=== PATIENT | male | born 1985 | race American Indian/Alaskan Native ===

== ENCOUNTER 2018-10-17 19:49 | Emergency (ER) | payer OTHER ==
--- NOTE | 2018-10-17 20:44 | Emergency Department Report ---
Blank Doc - Documentation Documentation: This is a 32-year-old male that presents with back pain and testicular pain. This initial assessment/diagnostic orders/clinical plan/treatment(s) is/are subject to change based on patient's health status, clinical progression and re- assessment by fellow clinical providers in the ED. Further treatment and workup at subsequent clinical providers discretion. Patient/guardians urged not to elope from the ED as their condition may be serious if not clinically assessed and managed. Initial orders include: 1- Patient sent to [facility] for further evaluation and treatment 2- US doppler testicular. Called tech for a stat US. 3- UA
--- NOTE | 2018-10-17 21:40 | Ultrasound Report ---
PROCEDURE: US TESTICULAR DOPPLER COMP TECHNIQUE: Real-time allen-scale and color flow Doppler sonography in multiple planes of the scrotum, testicles, and epididymes was performed. Velocity spectral waveform analysis and color Doppler imagi ng of the arterial inflow and venous outflow of the testicles was performed with image documentation. HISTORY: testicular pain COMPARISONS: None . FINDINGS: RIGHT TESTICLE: Size: 2.8 x 1.9 x 3.9 cm . Appearance: Normal size and echotexture . Arterial blood flow: Normal spectral waveforms, flow velocities and color flow images.. Venous blood flow: Normal spectral waveforms and color flow images. Right epididymis: Normal size and echotexture . Hydrocele: None . LEFT TESTICLE Size: 3.4 x 2.1 x 3.3 cm . Appearance: Normal size and echotexture . Arterial blood flow: Normal spectral waveforms, flow velocities and color flow images.. Venous blood flow: Normal spectral waveforms and color flow images. Left epididymis: Normal size and echotexture . Hydrocele: None . IMPRESSION: Normal Examination . This document is electronically signed by Claudio Gilbert MD., October 17 2018 09:38:31 PM ET
[2018-10-17 22:16] LABS: Bacteria,Urine 1+ /HPF (Negative); Bilirubin,Urine NEG (Negative); Blood,Urine NEG (Negative); Color,Urine Colorless (Yellow); Protein,Urine <15 mg/dL mg/dL (Negative); RBC,Urine < 1.0 /HPF (0.0-6.0); Urobilinogen,Urine < 2.0 mg/dL (<2.0); WBC,Urine < 1.0 /HPF (0.0-6.0)
--- NOTE | 2018-10-17 23:02 | Emergency Department Report ---
ED Male HPI - General Chief complaint: Back Pain/Injury Stated complaint: TESTICULAR PAIN/BACK PAIN Time Seen by Provider: 10/17/18 20:42 Source: patient Mode of arrival: Ambulatory Limitations: No Limitations - History of Present Illness Initial comments: Patient 32-year-old -[place] male who presents with left testicular pain 3 days there is no dysuria no hematuria no discharge patient states is intermittent relationship for std there is no nausea vomiting no abdominal pain MD Complaint: testicle pain Onset/Timin -: week(s) Location: left testicle Radiation: none Severity: moderate Severity scale (0 -10): 5 Quality: aching Consistency: intermittent Improves with: none Worsens with: palpation, movement denies other symptoms - Related Data Sexually active: Yes Previous Rx's Medication Instructions Recorded Last Taken Type HYDROcodone/APAP 5-325 [[place] 1 each PO Q6HR PRN #20 tablet 12/21/15 Unknown Rx 5/325] Doxycycline [Vibramycin CAP] 100 mg PO Q12HR 10 Days #20 capsule 10/17/18 Unknown Rx traMADol [Ultram] 50 mg PO Q6HR PRN #12 tablet 10/17/18 Unknown Rx Allergies Allergy/AdvReac Type Severity Reaction Status Date / Time No Known Allergies Allergy Unverified 09/02/13 11:41 ED Review of Systems ROS: Stated complaint: TESTICULAR PAIN/BACK PAIN Other details as noted in HPI Constitutional: denies: chills, fever Eyes: denies: eye pain, eye discharge, vision change ENT: denies: ear pain, throat pain Respiratory: denies: cough, shortness of breath, wheezing Cardiovascular: denies: chest pain, palpitations Endocrine: no symptoms reported Gastrointestinal: denies: abdominal pain, nausea, diarrhea Genitourinary: testicular pain (left test pain ). denies: urgency, dysuria, frequency, hematuria, discharge, testicular mass Musculoskeletal: denies: back pain, joint swelling, arthralgia Skin: denies: rash, lesions Neurological: denies: headache, weakness, paresthesias Psychiatric: denies: anxiety, depression Hematological/Lymphatic: denies: easy bleeding, easy bruising ED Past Medical Hx - Past Medical History Previous Medical History?: Yes Hx Psychiatric Treatment: Yes (anxiety) Hx Asthma: Yes Additional medical history: Hyperthyroid - Surgical History Past Surgical History?: No - Social History Smoking Status: Current Every Day Smoker Substance Use Type: Marijuana - Medications Home Medications: Home Medications Medication Instructions Recorded Confirmed Last Taken Type HYDROcodone/APAP 5-325 [[place] 1 each PO Q6HR PRN #20 tablet 12/21/15 Unknown Rx 5/325] Doxycycline [Vibramycin CAP] 100 mg PO Q12HR 10 Days #20 capsule 10/17/18 Unknown Rx traMADol [Ultram] 50 mg PO Q6HR PRN #12 tablet 10/17/18 Unknown Rx ED Physical Exam - General Limitations: No Limitations General appearance: alert, in no apparent distress - Head Head exam: Present: atraumatic, normocephalic - Eye Eye exam: Present: normal appearance - ENT ENT exam: Present: mucous membranes moist - Neck Neck exam: Present: normal inspection - Respiratory Respiratory exam: Present: normal lung sounds bilaterally. Absent: respiratory distress - Cardiovascular Cardiovascular Exam: Present: regular rate, normal rhythm. Absent: systolic mu rmur, diastolic murmur, rubs, gallop - GI/Abdominal GI/Abdominal exam: Present: soft, normal bowel sounds. Absent: distended, tenderness, guarding, rebound, rigid, bruit, hernia - Rectal Rectal exam: Present: deferred - exam: Present: testicular tenderness (epididymal tenderness to palpation), circumcision. Absent: scrotal swelling - Extremities Exam Extremities exam: Present: normal inspection, full ROM, normal capillary refill - Back Exam Back exam: Present: normal inspection, full ROM. Absent: tenderness, CVA tenderness (R), CVA tenderness (L), muscle spasm, paraspinal tenderness, rash noted - Neurological Exam Neurological exam: Present: alert, oriented X3, CN II-XII intact, normal gait - Psychiatric Psychiatric exam: Present: normal affect, normal mood - Skin Skin exam: Present: warm, dry, intact, normal color. Absent: rash ED Course Vital Signs 10/17/18 20:42 Temperature 98.1 F Pulse Rate 62 Respiratory 20 Rate Blood Pressure 112/61 O2 Sat by Pulse 100 Oximetry ED Medical Decision Making - Lab Data Labs 10/17/18 21:54 Urine Color Colorless Urine Turbidity Clear Urine pH 6.0 Ur Specific [place] 1.002 L Urine Protein <15 mg/dl Urine Glucose (UA) Neg Urine Ketones Neg Urine Blood Neg Urine Nitrite Neg Urine Bilirubin Neg Urine Urobilinogen < 2.0 Ur Leukocyte Esterase Neg Urine WBC (Auto) < 1.0 Urine RBC (Auto) < 1.0 Urine Bacteria (Auto) 1+ - Radiology Data Radiology results: report reviewed, image reviewed Ultrasound Report Signed Patient: TANG MARTINEZ MR#: [id number] : 1985 Acct:[id number] Age/Sex: 32 / M ADM Date: 10/17/18 Loc: ED Attending Dr: Ordering Physician: GERARDO FRENCH NP Date of Service: 10/17/18 Procedure(s): US testicular doppler comp Accession Number(s): [id number] cc: GERARDO FRENCH NP PROCEDURE: US TESTICULAR DOPPLER COMP TECHNIQUE: Real-time allen-scale and color flow Doppler sonography in multiple planes of the scrotum, testicles, and epididymes was performed. Velocity spectral waveform analysis and color Doppler imaging of the arterial inflow and venous outflow of the testicles was performed with image documentation. HISTORY: testicular pain COMPARISONS: None . FINDINGS: RIGHT TESTICLE: Size: 2.8 x 1.9 x 3.9 cm . Appearance: Normal size and echotexture . Arterial blood flow: Normal spectral waveforms, flow velocities and color flow images.. Venous blood flow: Normal spectral waveforms and color flow images. Right epididymis: Normal size and echotexture . Hydrocele: None . LEFT TESTICLE Size: 3.4 x 2.1 x 3.3 cm . Appearance: Normal size and echotexture . Arterial blood flow: Normal spectral waveforms, flow velocities and color flow images.. Venous blood flow: Normal spectral waveforms and color flow images. Left epididymis: Normal size and echotexture . Hydrocele: None . IMPRESSION: Normal Examination . This document is electronically signed by eFly Gilbert MD., October 17 2018 09:38:31 PM ET Transcribed By: [facility] Dictated By: FELY GILBERT Electronically Authenticated By: FELY GILBERT Signed Date/Time: 10/17/182139 DD/ 26 TD/TT: 10/17/182127 - Medical Decision Making this left epididymitis plan doxycycline bid x 10 days follow up with pcp in 2-3 days pt verbalized agreement and understanding of discharge plan. Critical care attestation.: If time is entered above; I have spent that time in minutes in the direct care of this critically ill patient, excluding procedure time. ED Disposition Clinical Impression: Epididymitis Disposition: - TO HOME OR SELFCARE Is pt being admited?: No Does the pt Need Aspirin: No Condition: Stable Instructions: Epididymitis (ED) Prescriptions: traMADol [Ultram] 50 mg PO Q6HR PRN #12 tablet PRN Reason: Pain Doxycycline [Vibramycin CAP] 100 mg PO Q12HR 10 Days #20 capsule Referrals: [facility] [Outside] - 3-5 Days Time of Disposition: 23:09
[2018-10-17 23:34] VITALS: BP 114/70
== END 2018-10-17 23:30 | disposition home or self-care (01) ==
LOC: ED 19:49
DX: N45.1 Epididymitis (principal); J45.909 Unspecified asthma, uncomplicated; F17.200 Nicotine dependence, unspecified, uncomplicated; F12.10 Cannabis abuse, uncomplicated
CPT/HCPCS: 81001; 93975